=== PATIENT | female | born 1970 | race Caucasian/White ===

== ENCOUNTER 2017-04-22 18:41 | Emergency (ER) | END 2017-04-23 00:41 | disposition home or self-care (01) ==

== ENCOUNTER 2018-09-28 19:33 | Emergency (ER) | payer MEDICAID, OTHER ==
[~2018-09-28] VITALS: Ht 162.6 cm; Wt 63.5 kg
[~2018-09-28 19:33] MED LIST: LISI-471 PO; LISI30TA47 PO; METO-429 ORAL; METO-448 PO
[2018-09-28 19:46] VITALS: Ht 162.6 cm; Wt 63.5 kg
[2018-09-28] MEDS ORDERED: SOD CHLORIDE 0.9% 500 ML IV STA (20:08)
[2018-09-28] MEDS ORDERED: ENALAPRILAT 1.25 MG INJ IV ONE (20:30)
[2018-09-28] MEDS ORDERED: hydrALAzine 20 MG INJ IV ONE (21:00)
[2018-09-28 21:30] VITALS: BP 141/82; PULSE 94; RESP 16
== END 2018-09-28 21:55 | disposition home or self-care (01) ==
LOC: E/R 19:33
DX: I10 Essential (primary) hypertension (principal)
CPT/HCPCS: 96374; 96375; J0360; J7040; Z7502; Z7610